=== PATIENT | female | born 1990 | race American Indian/Alaskan Native ===

== ENCOUNTER 2018-12-14 18:37 | Emergency (ER) | payer SELFPAY ==
--- NOTE | 2018-12-14 19:01 | Event Note ---
ED Screening Note Date of service: 12/14/18 Time: 18:57 ED Screening Note: 28 y/o female comes in for Headache and chest that started last night. No PMH none. Headache 10/10 chest pain /10. This initial assessment/diagnostic orders/clinical plan/treatment(s) is/are subject to change based on patients health status, clinical progression and re- assessment by fellow clinical providers in the ED. Further treatment and workup at subsequent clinical providers discretion. Patient/guardian urged not to elope from the ED as their condition may be serious if not clinically assessed and managed. Initial orders include:
[2018-12-14] MEDS ORDERED: CATAPRES PO ONE ×2 (19:22→23:03)
[2018-12-14] MEDS ORDERED: NORVASC PO ONE (20:25)
[2018-12-14] MEDS ORDERED: NORVASC ONE (20:27)
--- NOTE | 2018-12-14 22:10 | Emergency Department Report ---
ED Chest Pain HPI - General Chief Complaint: Chest Pain Stated Complaint: HEAD/CHEST PAIN Time Seen by Provider: 12/14/18 19:45 Source: patient Mode of arrival: Ambulatory Limitations: No Limitations - History of Present Illness Initial Comments: Patient is a 28-year-old that presents with headache and chest pain. Patient states she is having nausea and shortness of breath. Patient denies past medical history. Patient states her chest pain is a 10 at 10. States her headache tenderness. Patient states her headache and chest pain are better with rest and worse with exertion. Patient's states she's never been diagnosed with high blood pressure. Patient states she hasn't seen a doctor many years. MD Complaint: chest pain -: Sudden Onset: during rest Pain Location: substernal, left chest Pain Radiation: none Severity: severe Severity scale (0 -10): 10 Quality: sharp Consistency: constant Worsens With: exertion re: denies: nausea, vomting, diaphoresis, dyspnea, sense of impending doom Other Symptoms: denies: cough, fever, syncope, rash, acid taste in mouth, leg swelling, palpitations, burping Treatments Prior to Arrival: none Aspirin use within the Past 7 Days: (0) No - Related Data On Oral Contraceptives: No Previous Rx's Medication Instructions Recorded Last Taken Type amLODIPine [Norvasc] 10 mg PO DAILY 15 Days #15 tab 12/15/18 Unknown Rx Allergies Allergy/AdvReac Type Severity Reaction Status Date / Time No Known Allergies Allergy Unverified 12/14/18 18:43 Heart Score - HEART Score History: Slightly suspicious EKG: Normal Age: < 45 Risk factors: No known risk factors Troponin: < normal limit HEART Score: 0 ED Review of Systems ROS: Stated complaint: HEAD/CHEST PAIN Other details as noted in HPI Constitutional: denies: chills, fever Eyes: denies: eye pain, eye discharge, vision change ENT: denies: ear pain, throat pain Respiratory: denies: cough, shortness of breath, wheezing Cardiovascular: chest pain. denies: palpitations Endocrine: no symptoms reported Gastrointestinal: denies: abdominal pain, nausea, diarrhea Genitourinary: denies: urgency, dysuria, discharge Musculoskeletal: denies: back pain, joint swelling, arthralgia Skin: denies: rash, lesions Neurological: headache. denies: weakness, paresthesias Psychiatric: denies: anxiety, depression Hematological/Lymphatic: denies: easy bleeding, easy bruising ED Past Medical Hx - Past Medical History Previous Medical History?: No - Surgical History Past Surgical History?: No - Family History Family history: no significant - Social History Smoking Status: Current Every Day Smoker Substance Use Type: Marijuana - Medications Home Medications: Home Medications Medication Instructions Recorded Confirmed Last Taken Type amLODIPine [Norvasc] 10 mg PO DAILY 15 Days #15 tab 12/15/18 Unknown Rx ED Physical Exam - General Limitations: No Limitations General appearance: alert, in no apparent distress - Head Head exam: Present: atraumatic, normocephalic - Eye Eye exam: Present: normal appearance - ENT ENT exam: Present: mucous membranes moist - Neck Neck exam: Present: normal inspection - Respiratory Respiratory exam: Present: normal lung sounds bilaterally. Absent: respiratory distress - Cardiovascular Cardiovascular Exam: Present: regular rate, normal rhythm. Absent: systolic murmur, diastolic murmur, rubs, gallop - GI/Abdominal GI/Abdominal exam: Present: soft, normal bowel sounds - Extremities Exam Extremities exam: Present: normal inspection - Back Exam Back exam: Present: normal inspection - Neurological Exam Neurological exam: Present: alert, oriented X3 - Psychiatric Psychiatric exam: Present: normal affect, normal mood - Skin Skin exam: Present: warm, dry, intact, normal color. Absent: rash ED Course Vital Signs 12/14/18 12/14/18 12/14/18 18:59 19:08 19:32 Temperature 99.2 F 99.2 F Pulse Rate 83 83 83 Respiratory 20 20 Rate Blood Pressure 218/137 218/137 Blood Pressure 218/137 [218/137] O2 Sat by Pulse 100 100 Oximetry 12/14/18 12/14/18 12/14/18 20:20 20:26 20:30 Temperature Pulse Rate Respiratory 14 Rate Blood Pressure 183/117 159/107 Blood Pressure [218/137] O2 Sat by Pulse 100 100 Oximetry 12/14/18 12/14/18 12/14/18 21:00 21:31 22:00 Temperature Pulse Rate Respiratory 18 21 19 Rate Blood Pressure 157/105 167/118 185/138 Blood Pressure [218/137] O2 Sat by Pulse 100 100 100 Oximetry 12/14/18 12/15/18 22:30 00:18 Temperature Pulse Rate 74 Respiratory 19 16 Rate Blood Pressure 171/113 Blood Pressure 161/105 [218/137] O2 Sat by Pulse 100 100 Oximetry - Reevaluation(s) Reevaluation #1: On initial evaluation done. Patient found to have extremely elevated blood pressure. Patient was given clonidine 0.1 mg. Patient will be given Norvasc 5 mg.12/14/18 20:10 Reevaluation #2: Blood pressures dramatically better. Patient's chest pain and headache have completely resolved. 12/14/18 22:08 Reevaluation #3: I discussed all results the patient. I discussed monitor patient. Patient is stable for discharge. Patient will be discharged home. Patient given discharge instructions. Patient given blood pressure flexed. Patient given diet instructions. Patient was understanding of all instructions. 12/15/18 00:30 RYLAN score - Rylan Score Age > 65: (0) No Aspirin use within the Past 7 Days: (0) No 3 or more CAD Risk Factors: (0) No 2 or more Angina events in past 24 hrs: (0) No Known CAD with more than 50% Stenosis: (0) No Elevated Cardiac Markers: (0) No ST Deviation Greater than 0.5mm: (0) No RYLAN Score: 0 ED Medical Decision Making - Lab Data Result diagrams: 12/14/18 22:47 12/14/18 22:47 - EKG Data -: EKG Interpreted by De EKG shows normal: sinus rhythm, axis, intervals, QRS complexes, ST-T waves Rate: normal - EKG Data Interpretation: LVH - Radiology Data Radiology results: report reviewed, image reviewed CHEST 1 VIEW INDICATION: Chest Pain COMPARISON: None FINDINGS: Support devices: None Heart: Normal Lungs/Pleura: No acute pulmonary or pleural findings. IMPRESSION: 1. No significant abnormality. - Medical Decision Making Patient is a 28-year-old female presents emergency with complaints of chest pain and headache. Patient also found to have extremely elevated blood pressure. Patient's blood pressure medication and blood pressure improved. As the blood pressure improved patient's symptoms resolved. Patient is low risk. Patient discharged home patient's information faxed to the local cardiology office for close follow-up for her chest pain. Patient's heart score is less than 2. Patient's labs unremarkable. Patient's chest x-ray negative. Patient EKG shows LVH. Patient given a Norvasc prescription to take as an outpatient. - Differential Diagnosis hypertensive urgency. Chest pain. Headache. Critical Care Time: Yes Critical care attestation.: If time is entered above; I have spent that time in minutes in the direct care of this critically ill patient, excluding procedure time. Critical Care Time: 45 minutes ED Disposition Clinical Impression: Hypertensive urgency, Essential hypertension Chest pain Qualifiers: Chest pain type: unspecified Qualified Code(s): R07.9 - Chest pain, unspecified Disposition: TO HOME OR SELFCARE Is pt being admited?: No Does the pt Need Aspirin: No Condition: Stable Instructions: Chest Pain (ED), Heart Healthy Diet (ED), How to Take a Blood Pressure (ED), DASH Eating Plan (ED), Low Sodium Diet (ED), Hypertension (ED) Additional Instructions: Patient to follow up with primary care in 2-3 days. Patient to take meds as directed. Patient to keep a blood pressure log. Patient to return to ER if condition worsens. Patient to eat a low-salt, heart healthy diet. Patient to avoid salt. Patient to increase water. Prescriptions: amLODIPine [Norvasc] 10 mg PO DAILY 15 Days #15 tab Referrals: SUN GUNN MD [Primary Care Provider] - 2-3 Days Time of Disposition: 00:24
--- NOTE | 2018-12-14 22:45 | XRay Report ---
CHEST 1 VIEW INDICATION: Chest Pain COMPARISON: None FINDINGS: Support devices: None Heart: Normal Lungs/Pleura: No acute pulmonary or pleural findings. IMPRESSION: 1. No significant abnormality. Signer Name: Adrien Batres MD Signed: 12/14/2018 10:41 PM Workstation Name: [id number]
[2018-12-14 23:21] LABS: Basophils # (Auto) 0.1 K/mm3 (0.0-0.1); Eosinophils # (Auto) 0.2 K/mm3 (0.0-0.4); Eosinophils % (Auto) 2.8 % (0.0-4.3); Hematocrit 40.3 % (30.3-42.9); Hemoglobin 13.1 gm/dl (10.1-14.3); Lymphocytes # (Auto) 2.5 K/mm3 (1.2-5.4); Lymphocytes % (Auto) 36.2 % (13.4-35.0); Mean Corpuscular HGB Conc 32 % (30-34); Mean Corpuscular Volume 87 fl (79-97); Monocytes # (Auto) 0.8 K/mm3 (0.0-0.8); Monocytes % (Auto) 11.5 % (0.0-7.3); Platelet Count 343 K/mm3 (140-440); Red Blood Count 4.62 M/mm3 (3.65-5.03); Red Cell Distribution Width 17.5 % (13.2-15.2)
[2018-12-14 23:32] LABS: Alanine Aminotransferase 9 units/L (7-56); Albumin 4.3 g/dL (3.9-5); BUN/Creatinine Ratio 23; Blood Urea Nitrogen 14 mg/dL (7-17); Calcium 9.5 mg/dL (8.4-10.2); Hemolysis Index 18
[2018-12-15 00:19] VITALS: BP 161/105
== END 2018-12-15 00:55 | disposition home or self-care (01) ==
LOC: ED 18:37
DX: I16.0 Hypertensive urgency (principal); I10 Essential (primary) hypertension; R07.89 Other chest pain; R51 Headache; F17.200 Nicotine dependence, unspecified, uncomplicated; F12.10 Cannabis abuse, uncomplicated; Z79.899 Other long term (current) drug therapy
CPT/HCPCS: 36415; 71045; 80053; 84484; 85025; 93005; 93010

== ENCOUNTER 2018-12-29 18:43 | Emergency (ER) | payer SELFPAY ==
[2018-12-29 19:28] VITALS: BP 179/118
--- NOTE | 2018-12-29 20:05 | Event Note ---
ED Screening Note Date of service: 12/29/18 Time: 19:26 ED Screening Note: 28 yo F presents with FB in right eye states she was at work early this am when object fell in eye and she feels it moving in eye and pain This initial assessment/diagnostic orders/clinical plan/treatment(s) is/are subj ect to change based on patients health status, clinical progression and re- assessment by fellow clinical providers in the ED. Further treatment and workup at subsequent clinical providers discretion. Patient/guardian urged not to elope from the ED as their condition may be serious if not clinically assessed and managed. Initial orders include: EYE KIT
== END 2018-12-29 21:09 | disposition home or self-care (01) ==
LOC: ED 18:43
DX: H92.01 Otalgia, right ear (principal); Z53.21 Procedure and treatment not carried out due to patient leaving prior to being seen by health care provider

== ENCOUNTER 2020-01-23 15:20 | Emergency (ER) | payer SELFPAY ==
[2020-01-23 16:18] VITALS: BP 150/95
--- NOTE | 2020-01-23 16:35 | Emergency Department Report ---
ED General Adult HPI - General Chief complaint: Chest Pain Stated complaint: CHEST PAIN PUI?: No Time Seen by Provider: 01/23/20 16:13 Source: patient Mode of arrival: Ambulatory Limitations: No Limitations - History of Present Illness Initial comments: CC: chest pain HPI: This is a 29 yo female with hx of HTN who presents with right sided chest pain since yesterday. Mild in severity. Squeezing tingling sensation. Each episode lasts a few seconds. Gradual onset. No pain currently. No dyspnea. No fever. No wheezing. No leg pain. No use of OCPs. Traveled to [place] one month ago. Recently seen in hospital in [place] for headache and elevated blood pressure. -: Gradual, days(s) (1) Location: chest Severity scale (0 -10): 9 Consistency: now resolved Improves with: none Worsens with: none Associated Symptoms: denies other symptoms - Related Data Previous Rx's Medication Instructions Recorded Last Taken Type amLODIPine [Norvasc] 10 mg PO DAILY 15 Days #15 tab 12/15/18 Unknown Rx Ketorolac Tromethamine [Acular 1 drop OP QID #1 bottle 12/29/18 Unknown Rx 0.5% Opth Soln] Tobramycin 0.3% [Tobrex] 1 drop OD Q8HR #1 bottle 12/29/18 Unknown Rx Allergies Allergy/AdvReac Type Severity Reaction Status Date / Time No Known Allergies Allergy Unverified 12/14/18 18:43 ED Review of Systems ROS: Stated complaint: CHEST PAIN Other details as noted in HPI Comment: All other systems reviewed and negative Constitutional: denies: fever, malaise ENT: denies: ear pain Respiratory: denies: cough, shortness of breath Cardiovascular: chest pain Gastrointestinal: denies: abdominal pain, nausea, vomiting Skin: denies: rash, lesions ED Past Medical Hx - Past Medical History Previous Medical History?: Yes Hx Hypertension: Yes - Surgical History Past Surgical History?: Yes Additional Surgical History: right eye - Social History Smoking Status: Current Every Day Smoker Substance Use Type: Alcohol, Marijuana - Medications Home Medications: Home Medications Medication Instructions Recorded Confirmed Last Taken Type amLODIPine [Norvasc] 10 mg PO DAILY 15 Days #15 tab 12/15/18 Unknown Rx Ketorolac Tromethamine [Acular 1 drop OP QID #1 bottle 12/29/18 Unknown Rx 0.5% Opth Soln] Tobramycin 0.3% [Tobrex] 1 drop OD Q8HR #1 bottle 12/29/18 Unknown Rx ED Physical Exam - General Limitations: No Limitations General appearance: alert, in no apparent distress, other (Smiling pleasant appears comfortable) - Head Head exam: Present: atraumatic, normocephalic - Eye Eye exam: Present: normal appearance - ENT ENT exam: Present: mucous membranes moist - Neck Neck exam: Present: normal inspection, full ROM - Respiratory Respiratory exam: Present: normal lung sounds bilaterally. Absent: respiratory distress, wheezes, rales, rhonchi - Cardiovascular Cardiovascular Exam: Present: regular rate, normal rhythm, normal heart sounds. Absent: systolic murmur, diastolic murmur, rubs, gallop - GI/Abdominal GI/Abdominal exam: Present: soft, normal bowel sounds. Absent: distended, tende rness, guarding, rebound - Extremities Exam Extremities exam: Present: normal inspection - Neurological Exam Neurological exam: Present: alert, oriented X3 - Psychiatric Psychiatric exam: Present: normal affect, normal mood - Skin Skin exam: Present: warm, dry, intact, normal color. Absent: rash ED Course Vital Signs 01/23/20 01/23/20 15:33 16:17 Temperature 98.7 F 98.4 F Pulse Rate 86 77 Respiratory 14 18 Rate Blood Pressure 153/97 Blood Pressure 150/95 [Left] O2 Sat by Pulse 100 100 Oximetry ED Medical Decision Making - EKG Data -: EKG Interpreted by In EKG shows normal: sinus rhythm, axis, intervals, QRS complexes, ST-T waves Rate: normal - EKG Data Interpretation: normal EKG 01/23/20 16:32 EKG obtained 1540 EKG interpreted by me Normal sinus rhythm normal rate normal axis normal intervals no ST elevation no ST-T signs of ischemia normal EKG rate 70 bpm - Medical Decision Making Is a 29-year-old female with chest pain atypical for ACS. PERC negative for PE. Considering lung exam and presentation do not suspect pneumothorax. EKG absent of signs of pericarditis. Heart score 1 No indication of emergent cause of chest pain. Differential diagnosis includes: PVCs, musculoskeletal chest wall pain. I strongly suggested cessation of tobacco use. I also recommended for outpatient medical exam. She has not seen a primary physician in several years. Encouraged her to keep a primary care physician for control of hypertension. She is currently taking amlodipine 5 mg tablets prescribed to her at outside emergency department. She was given referral to our outpatient medicine physician. She is discharged home in stable condition. Critical care attestation.: If time is entered above; I have spent that time in minutes in the direct care of this critically ill patient, excluding procedure time. ED Disposition Clinical Impression: Chest pain, Hypertension Disposition: - TO HOME OR SELFCARE Is pt being admited?: No Does the pt Need Aspirin: No Condition: Stable Instructions: Chest Pain (ED), Hypertension (ED) Additional Instructions: Please see our outpatient medicine physician within 2 weeks. Referrals: DWYANE MEDELLIN MD [Staff Physician] - 7-10 days Forms: Work/School Release Form(ED)
--- NOTE | 2020-01-23 18:03 | XRay Report ---
CHEST 1 VIEW INDICATION / CLINICAL INFORMATION: Chest Pain. COMPARISON: 12/14/2018 FINDINGS: SUPPORT DEVICES: None. HEART / MEDIASTINUM: Stable. LUNGS / PLEURA: No significant pulmonary or pleural abnormality. No pneumothorax. ADDITIONAL FINDINGS: No significant additional findings. IMPRESSION: 1. No acute findings. No significant interval change. Signer Name: Satnam Melgar MD Signed: 01/23/2020 5:59 PM Workstation Name: [id number]
== END 2020-01-23 17:00 | disposition home or self-care (01) ==
LOC: ED 15:20
DX: I10 Essential (primary) hypertension (principal); R07.89 Other chest pain; F17.200 Nicotine dependence, unspecified, uncomplicated; F12.90 Cannabis use, unspecified, uncomplicated; Z98.890 Other specified postprocedural states; Z79.899 Other long term (current) drug therapy
CPT/HCPCS: 71045; 93005

== ENCOUNTER 2020-03-26 23:54 | Emergency (ER) | payer SELFPAY ==
[2020-03-27 01:42] LABS: Basophils # (Auto) 0.1 K/mm3 (0.0-0.1); Basophils % (Auto) 1.5 % (0.0-1.8); Eosinophils # (Auto) 0.2 K/mm3 (0.0-0.4); Eosinophils % (Auto) 2.4 % (0.0-4.3); Hematocrit 33.6 % (30.3-42.9); Hemoglobin 11.2 gm/dl (10.1-14.3); Lymphocytes % (Auto) 37.3 % (13.4-35.0); Mean Corpuscular HGB Conc 33 % (30-34); Mean Corpuscular Volume 88 fl (79-97); Monocytes # (Auto) 0.6 K/mm3 (0.0-0.8); Monocytes % (Auto) 7.2 % (0.0-7.3); Platelet Count 316 K/mm3 (140-440); Red Blood Count 3.81 M/mm3 (3.65-5.03); Red Cell Distribution Width 16.2 % (13.2-15.2)
[2020-03-27 02:05] LABS: Alanine Aminotransferase 9 units/L (7-56); Albumin 4.2 g/dL (3.9-5); Blood Urea Nitrogen 16 mg/dL (7-17); Calcium 9.6 mg/dL (8.4-10.2); Hemolysis Index 2
[2020-03-27 02:19] LABS: BUN/Creatinine Ratio 23
[2020-03-27] MEDS ORDERED: BUTALB/ACETAMINOPHEN/CAFFEINE TAB PO STA (05:19)
--- NOTE | 2020-03-27 05:19 | Emergency Department Report ---
ED General Adult HPI - General Chief complaint: Abdominal Pain Stated complaint: HEADACHE/EMESIS Time Seen by Provider: 03/27/20 04:06 Source: patient Mode of arrival: Ambulatory Limitations: No Limitations - History of Present Illness Initial comments: 30-year-old -[place] female patient presents with complaints of intermittent headache and nausea and vomiting x 3 days. She reports 2 episodes of vomiting on , however states she has not vomited since and is tolerating foods and fluids without difficulty. She denies any hematemesis/ coffee-ground emesis, diarrhea/hematochezia/melena, fever/chills/sweats, cough, chest pain, or shortness of breath. She states the headache is intermittent and ibuprofen made it little better. She reports that she gets these types of headaches when her blood pressure is not controlled. She states compliance with her amlodipine and denies any vision changes, head trauma, dizziness, numbness/tingling/weakness in the limbs, difficulty with speech/ambulation, confusion, or memory loss. Patient rates her current headache as a 6/10 in severity and states it is generalized. Severity scale (0 -10): 2 - Related Data Previous Rx's Medication Instructions Recorded Last Taken Type Ketorolac Tromethamine [Acular 1 drop OP QID #1 bottle 12/29/18 Unknown Rx 0.5% Opth Soln] Tobramycin 0.3% [Tobrex] 1 drop OD Q8HR #1 bottle 12/29/18 Unknown Rx amLODIPine 10 mg PO DAILY 30 Days #30 tab 03/27/20 Unknown Rx Allergies Allergy/AdvReac Type Severity Reaction Status Date / Time No Known Allergies Allergy Unverified 12/14/18 18:43 ED Review of Systems ROS: Stated complaint: HEADACHE/EMESIS Other details as noted in HPI Constitutional: denies: chills, diaphoresis, fever, malaise, weakness Respiratory: denies: cough, shortness of breath Cardiovascular: denies: chest pain Endocrine: denies: excessive sweating Gastrointestinal: abdominal pain, nausea, vomiting. denies: diarrhea, constipation, hematemesis, hematochezia Genitourinary: denies: urgency, dysuria, frequency, hematuria, discharge Skin: denies: rash, change in color Neurological: headache. denies: weakness, numbness, paresthesias, confusion, abnormal gait, vertigo ED Past Medical Hx - Past Medical History Previous Medical History?: Yes Hx Hypertension: Yes - Surgical History Past Surgical History?: Yes Additional Surgical History: right eye - Social History Smoking Status: Never Smoker Substance Use Type: None - Medications Home Medications: Home Medications Medication Instructions Recorded Confirmed Last Taken Type Ketorolac Tromethamine [Acular 1 drop OP QID #1 bottle 12/29/18 Unknown Rx 0.5% Opth Soln] Tobramycin 0.3% [Tobrex] 1 drop OD Q8HR #1 bottle 12/29/18 Unknown Rx amLODIPine 10 mg PO DAILY 30 Days #30 tab 03/27/20 Unknown Rx ED Physical Exam - General Limitations: No Limitations General appearance: alert, in no apparent distress - Head Head exam: Present: atraumatic, normocephalic, normal inspection - Eye Eye exam: Present: normal appearance, PERRL. Absent: scleral icterus - Neck Neck exam: Present: normal inspection, full ROM - Respiratory Respiratory exam: Present: normal lung sounds bilaterally. Absent: respiratory distress - Cardiovascular Cardiovascular Exam: Present: regular rate, normal rhythm - GI/Abdominal GI/Abdominal exam: Present: soft, normal bowel sounds. Absent: distended, tenderness, guarding, rebound, rigid - Extremities Exam Extremities exam: Present: normal inspection - Back Exam Back exam: Present: normal inspection - Neurological Exam Neurological exam: Present: alert, oriented X3, CN II-XII intact, normal gait. Absent: motor sensory deficit - Psychiatric Psychiatric exam: Present: normal affect, agitated - Skin Skin exam: Present: warm, dry, intact, normal color. Absent: rash ED Course Vital Signs 03/27/20 00:52 Temperature 98 F Pulse Rate 75 Respiratory 18 Rate Blood Pressure 182/98 [Left] O2 Sat by Pulse 99 Oximetry ED Medical Decision Making - Lab Data Result diagrams: 03/27/20 00:56 03/27/20 00:56 Lab Results 03/27/20 03/27/20 03/27/20 Range/Units 00:56 00:56 00:56 WBC 8.0 (4.5-11.0) K/mm3 RBC 3.81 (3.65-5.03) M/mm3 Hgb 11.2 (10.1-14.3) gm/dl Hct 33.6 (30.3-42.9) % MCV 88 (79-97) fl MCH 29 (28-32) pg MCHC 33 (30-34) % RDW 16.2 H (13.2-15.2) % Plt Count 316 (140-440) K/mm3 Lymph % (Auto) 37.3 H (13.4-35.0) % [place] % (Auto) 7.2 (0.0-7.3) % Eos % (Auto) 2.4 (0.0-4.3) % Baso % (Auto) 1.5 (0.0-1.8) % Lymph # (Auto) 3.0 (1.2-5.4) K/mm3 [place] # (Auto) 0.6 (0.0-0.8) K/mm3 Eos # (Auto) 0.2 (0.0-0.4) K/mm3 Baso # (Auto) 0.1 (0.0-0.1) K/mm3 Seg Neutrophils % 51.6 (40.0-70.0) % Seg Neutrophils # 4.2 (1.8-7.7) K/mm3 Sodium 138 (137-145) mmol/L Potassium 4.0 (3.6-5.0) mmol/L Chloride 103.8 (98-107) mmol/L Carbon Dioxide 23 (22-30) mmol/L Anion Gap 15 mmol/L BUN 16 (7-17) mg/dL Creatinine 0.7 (0.6-1.2) mg/dL Estimated GFR > 60 ml/min BUN/Creatinine Ratio 23 % Glucose 98 (65-100) mg/dL Calcium 9.6 (8.4-10.2) mg/dL Total Bilirubin < 0.20 (0.1-1.2) mg/dL AST 13 (5-40) units/L ALT 9 (7-56) units/L Alkaline Phosphatase 60 (35-129) units/L Total Protein 7.3 (6.3-8.2) g/dL Albumin 4.2 (3.9-5) g/dL Albumin/Globulin Ratio 1.4 % Lipase 48 (13-60) units/L HCG, Qual Negative (Negative) - Medical Decision Making 30-year-old -[place] female patient presents with complaints of intermittent headache and nausea and vomiting x 3 days. She reports 2 episodes of vomiting on , however states she has not vomited since and is tolerating foods and fluids without difficulty. She denies any hemate mesis/coffee-ground emesis, diarrhea/hematochezia/melena, fever/chills/sweats, cough, chest pain, or shortness of breath. She states the headache is intermittent and ibuprofen made it little better. She reports that she gets these types of headaches when her blood pressure is not controlled. She states compliance with her amlodipine and denies any vision changes, head trauma, dizziness, numbness/tingling/weakness in the limbs, difficulty with speech/ambulation, confusion, or memory loss. Patient rates her current headache as a 6/10 in severity and states it is generalized. Patient is neurologically intact on exam. No abdominal tenderness is noted. CBC and CMP are without acute findings. Blood pressure noted to be 178/103 on repeat. Patient given hydralazine and Fioricet. Patient reports she does not wish to wait for reevaluation of her blood pressure and is requesting to be disc harged home. Discussed risk of uncontrolled blood pressure including stroke and or possibility of brain bleed or other cranial abnormality-patient states understanding and still states she would like to be discharged home. She is well-appearing and ANO x3. Recommend follow-up with primary care within 2 days for reevaluation of blood pressure and further assessment. Strict return precautions were discussed in detail with patient who verbalizes understanding Critical care attestation.: If time is entered above; I have spent that time in minutes in the direct care of this critically ill patient, excluding procedure time. ED Disposition Clinical Impression: Uncontrolled hypertension Headache Qualifiers: Headache type: tension-type Headache chronicity pattern: episodic headache Intractability: not intractable Qualified Code(s): G44.219 - Episodic tension- type headache, not intractable Disposition: DC-01 TO HOME OR SELFCARE Is pt being admited?: No Condition: Stable Instructions: Abdominal Pain (ED), Hypertension (ED), Hypertension, Adult Prescriptions: amLODIPine 10 mg PO DAILY 30 Days #30 tab Referrals: SUN GUNN MD [Primary Care Provider] - 2-3 Days
[2020-03-27] MEDS ORDERED: hydrALAZINE 25 MG TAB PO ONE (05:20)
[2020-03-27 05:29] VITALS: BP 175/110
== END 2020-03-27 05:50 | disposition home or self-care (01) ==
LOC: ED 23:54
DX: I10 Essential (primary) hypertension (principal); Z79.899 Other long term (current) drug therapy
CPT/HCPCS: 36415; 80053; 83690; 84703; 85025; 99283